=== PATIENT | male | born 1995 | race Caucasian/White ===

== ENCOUNTER 2016-10-24 06:12 | Emergency (ER) | payer BC ==
--- NOTE | 2016-10-24 08:05 | REP ---
Clinical: Chest pain . Comparison: 05/20/2014 . Technique: PA and lateral. Findings: The mediastinum and cardiac silhouette are normal. The lung johnson are clear and without acute consolidation, effusion, or pneumothorax. The skeletal structures are intact and normal. Impression: 1. No acute cardiopulmonary process. Signed by Ten Boyer MD 10/24/2016 07:57 A
[2016-10-24] MEDS ORDERED: KETOROLAC 30 MG/ML VIAL (J1885) As Ordered ONE (08:19)
[2016-10-24] MEDS ORDERED: diazePAM 5 MG TAB As Ordered ONE (08:19)
--- NOTE | 2016-10-24 08:33 | EDDOCDS ---
Physician Documentation [facility] Name: Rasta Gandara Age: 20 yrs Sex: Male : 1995 Arrival Date: 10/24/2016 Time: 06:12 Bed I4 / M4 Private MD: Disposition: 10/24/16 08:18 Discharged to Home/Self Care. Impression: Chest pain on breathing. - Condition is Stable. - Discharge Instructions: Chest Wall Pain, Muscle Cramps and Spasms. - Prescriptions for Naprosyn 500 mg Oral Tablet - take 1 tablet by ORAL route 2 times per day take with food; 30 tablet. Valium 5 mg Oral Tablet - take 1 tablet by ORAL route every 8 hours As needed MDD: 3 tabs; 15 tablet. - Medication Reconciliation form. - Follow up: Private Physician; When: Call to arrange an appointment; Reason: Wound/Symptom Recheck, Recheck today's complaints, Worsening of conditions, Continuance of care. - Problem is an ongoing problem. - Symptoms have improved. Historical: - Allergies: no known allergies; - Home Meds: 1. none - PMHx: none; - PSHx: none; - Social history: Smoking status: Patient/guardian denies using No barriers to communication noted, The patient speaks fluent Nepalese. - Family history: Not pertinent. - : The pt / caregiver states he / she is not on anticoagulants. Home medication list is obtained from the patient. - Exposure Risk Screening:: None identified. Vital Signs: 10/24 06:56 BP 121 / 73; Pulse 88; Resp 20; Temp 97.6; Pulse Ox 96% ; Weight 71.21 kg / 156.99 lbs dls (R); Height 5 ft. 9 in. (175.26 cm) (R); Pain 6/10; 08:28 BP 120 / 76; Pulse 76; Resp 18; Temp 98.3(O); Pulse Ox 95% on R/A; Pain 5/10; dem1 06:56 Body Mass Index 23.18 (71.21 kg, 175.26 cm) dls MDM: 07:41 ECG WITH READING ER PHYS+CARDIAG ordered. EDMS 07:42 Chest, 2 View (pa\E\lat) Ordered. EDMS 08:09 Financial registration complete. lg 08:18 ketorolac 60 mg IM once ordered. cc10 08:18 Diazepam 5 mg PO once ordered. cc10 Administered Medications: : Drug: ketorolac 60 mg [ketorolac 30 mg/mL (1 mL) injection solution (2 mL)] Route: IM; dls Site: left gluteus; 08:28 Follow up: Response: Pt left department before re-evaluation is appropriate dls 08: Drug: Diazepam 5 mg [diazepam 5 mg tablet (1 tabs)] Route: PO; dls : Follow up: Response: Confirmed pt not driving.; Pt left department before re-evaluation dls is appropriate Signatures: Dispatcher [employer] EDJenni Soto RN RN dls Lisa Arroyo Reg Reg lg [place], Colin, PA-C PACeci cc10 MTDD
--- NOTE | 2016-10-24 08:33 | EDDOCDS ---
Nurse's Notes [facility] Name: Rasta Gandara Age: 20 yrs Sex: Male : 1995 Arrival Date: 10/24/2016 Time: 06:12 Bed I4 / M4 Private MD: Diagnosis: Chest pain on breathing Presentation: 10/24 06:54 Presenting complaint: Patient states: Pt presents with c/o left sided chest pain onset dls one week ago much worse when he woke up this morning denies injury worse with movement denies cough. Aspirin was not taken prior to arrival. Adult Sepsis Screening: The patient does not have new or worsening altered mentation. Patient's respiratory rate is less than 22. Systolic blood pressure is greater than 100. Patient has a qSOFA score of 0- Negative Sepsis Screen. Suicide/Homicide risk assessment- the patient denies having any suicidal and/or homicidal ideations and does not present with any other emotional, behavioral or mental health complaints. 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 Transition of care: patient was not received from another setting of care. 06:54 Acuity: ENRIKE Level 4 dls 06:54 Method Of Arrival: Walkin/Carried/Asstd dls Triage Assessment: 06:56 General: Appears uncomfortable, well developed, well nourished, well groomed, Behavior dls is cooperative. Pain: Pain currently is 6 out of 10 on a pain scale. HIV screening NA for this visit Offered previously. Historical: - Allergies: no known allergies; - Home Meds: 1. none - PMHx: none; - PSHx: none; - Social history: Smoking status: Patient/guardian denies using No barriers to communication noted, The patient speaks fluent Serbian. - Family history: Not pertinent. - : The pt / caregiver states he / she is not on anticoagulants. Home medication list is obtained from the patient. - Exposure Risk Screening:: None identified. Screenin:29 Screening information is obtained from the patient. Fall risk: No risks identified. dls Assistance ADL's: requires no assistance with activities of daily living. Abuse/DV Screen: The patient / caregiver reports he/she is: not in a situation that causes fear, pain or injury. Nutritional screening: No deficits noted. Advance Directives: Currently, there is no health care proxy. There is no active DNR order. There is no living will. There is no Power of Model Technician. Advance directive information has not previously been placed in an [facility] medical record. home support is adequate. Assessment: 08:28 General: See triage note.. dls 08:31 Cardiovascular: Rhythm is sinus rhythm No ectopy. dls Vital Signs: 06:56 BP 121 / 73; Pulse 88; Resp 20; Temp 97.6; Pulse Ox 96% ; Weight 71.21 kg (R); Height 5 dls ft. 9 in. (175.26 cm) (R); Pain 6/10; 08:28 BP 120 / 76; Pulse 76; Resp 18; Temp 98.3(O); Pulse Ox 95% on R/A; Pain 5/10; dem1 06:56 Body Mass Index 23.18 (71.21 kg, 175.26 cm) dls Vitals: 06:56 Log In Time: October 24, 2016 at 06:13. dls ED Course: 06:13 Patient visited by Laila Manning, Reg. hs2 06:13 Patient moved to Waiting hs2 06:54 Patient moved to Triage 1 dls 06:56 Triage Initiated dls 07:00 Patient moved to I4 / M4 dls 07:59 Patient visited by Demario Kenny. dem1 07:59 EKG done. (by ED staff). Reviewed by Michael Almaraz PA-C. dem1 08:08 Michael Almaraz PA-C is PHCP. cc10 08:08 Daniel Delaney MD is Attending Physician. cc10 08:08 Patient visited by Michael Almaraz PA-C. cc10 08:08 Patient visited by Michael Almaraz PA-C. cc10 08:09 Chest, 2 View (pa\E\lat) Returned. EDMS 08:29 Patient visited by Demario Kenny. dem1 08:29 The patient / caregiver is instructed regarding the plan of care and ED course. dls Accompanied by Family Member, Patient has correct armband on for positive identification. Placed in gown. Bed in low position. Call light in reach. Cardiac monitoring not applicable on this patient. 08:29 No IV's were initiated during this patient's visit. No procedures done that require dls assistance. Administered Medications: 08:27 Drug: ketorolac 60 mg [ketorolac 30 mg/mL (1 mL) injection solution (2 mL)] Route: IM; dls Site: left gluteus; 08:28 Follow up: Response: Pt left department before re-evaluation is appropriate dls 08:27 Drug: Diazepam 5 mg [diazepam 5 mg tablet (1 tabs)] Route: PO; dls 08:27 Follow up: Response: Confirmed pt not driving.; Pt left department before re-evaluation dls is appropriate Order Results: Radiology Order: Chest, 2 View (pa\E\lat) Test: Chest, 2 View (pa\E\lat) REASON FOR EXAMINATION: Chest Pain; Clinical: Chest pain .; ; Comparison: 05/20/2014 .; ; Technique: PA and lateral.; ; Findings:; The mediastinum and cardiac silhouette are normal. The lung johnson are clear and; without acute consolidation, effusion, or pneumothorax. The skeletal structures; are intact and normal.; ; Impression:; 1. No acute cardiopulmonary process.; ; ; Signed by; Ten Boyer MD 10/24/2016 07:57 A; Outcome: 08:18 Discharge ordered by Provider. cc10 08:30 Discharge Assessment: Patient awake, alert and oriented x 3. No cognitive and/or dls functional deficits noted. Patient verbalized understanding of disposition instructions. patient administered narcotics - yes. Pt provided with safe discharge. The following High Risk Discharge criteria are identified: None. Discharged to home ambulatory, with parent. Condition: stable. Discharge instructions given to patient, Instructed on discharge instructions, follow up and referral plans. medication usage, Demonstrated understanding of instructions, medications, Pt was receptive of discharge instructions/ teaching. Prescriptions given X 2, Work note provided to patient. No special radiology studies were completed. Property sent home with patient. 08:31 Patient left the ED. dls Signatures: Dispatcher [employer] EDJenni Soto RN RN dls Mack, Demeishia dem1 Michael Almaraz PA-C PA-C cc10 Laila Manning, Reg Reg hs2 Corrections: (The following items were deleted from the chart) 08:29 08:28 BP 120 / 76; Pulse 76bpm; Resp 18bpm; Pulse Ox 95% RA; Temp 98.3F Oral; dem1 dem1 MTDD
--- NOTE | 2016-10-24 12:19 | ECGEPIP ---
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 RBBB EARLY REPOLARIZATION Electronically Signed On 10-24-2016 12:19:05 EST by Jake Nye
--- NOTE | 2016-10-26 09:33 | EDDOCDS ---
Physician Documentation [facility] Name: Rasta Gandara Age: 20 yrs Sex: Male : 1995 Arrival Date: 10/24/2016 Time: 06:12 Bed I4 / M4 Private MD: Disposition: 10/24/16 08:18 Discharged to Home/Self Care. Impression: Chest pain on breathing. - Condition is Stable. - Discharge Instructions: Chest Wall Pain, Muscle Cramps and Spasms. - Prescriptions for Naprosyn 500 mg Oral Tablet - take 1 tablet by ORAL route 2 times per day take with food; 30 tablet. Valium 5 mg Oral Tablet - take 1 tablet by ORAL route every 8 hours As needed MDD: 3 tabs; 15 tablet. - Medication Reconciliation form. - Follow up: Private Physician; When: Call to arrange an appointment; Reason: Wound/Symptom Recheck, Recheck today's complaints, Worsening of conditions, Continuance of care. - Problem is an ongoing problem. - Symptoms have improved. Historical: - Allergies: no known allergies; - Home Meds: 1. none - PMHx: none; - PSHx: none; - Social history: Smoking status: Patient/guardian denies using No barriers to communication noted, The patient speaks fluent Peruvian. - Family history: Not pertinent. - : The pt / caregiver states he / she is not on anticoagulants. Home medication list is obtained from the patient. - Exposure Risk Screening:: None identified. Vital Signs: 10/24 06:56 BP 121 / 73; Pulse 88; Resp 20; Temp 97.6; Pulse Ox 96% ; Weight 71.21 kg / 156.99 lbs dls (R); Height 5 ft. 9 in. (175.26 cm) (R); Pain 6/10; 08:28 BP 120 / 76; Pulse 76; Resp 18; Temp 98.3(O); Pulse Ox 95% on R/A; Pain 5/10; dem1 06:56 Body Mass Index 23.18 (71.21 kg, 175.26 cm) dls MDM: 07:41 ECG WITH READING ER PHYS+CARDIAG ordered. EDMS 07:42 Chest, 2 View (pa\E\lat) Ordered. EDMS 08:09 Financial registration complete. lg 08:18 ketorolac 60 mg IM once ordered. cc10 08:18 Diazepam 5 mg PO once ordered. cc10 09:42 [facility] Payment Agreement was scanned into [employer] and attached to record. lg 17:13 T-Sheet-- Draft Copy was scanned into [employer] and attached to record. klr Administered Medications: 08:27 Drug: ketorolac 60 mg [ketorolac 30 mg/mL (1 mL) injection solution (2 mL)] Route: IM; dls Site: left gluteus; 08:28 Follow up: Response: Pt left department before re-evaluation is appropriate dls 08: Drug: Diazepam 5 mg [diazepam 5 mg tablet (1 tabs)] Route: PO; dls 08: Follow up: Response: Confirmed pt not driving.; Pt left department before re-evaluation dls is appropriate Signatures: Dispatcher [employer] EDJenni Soto RN RN dls Lisa Arroyo, José Kumar lg Michael Almaraz, PA-C PA-C cc10 Flavia Schultz klr The chart was reviewed and I authenticate all verbal orders and agree with the evaluation and treatment provided.Attachments: 09:42 [facility] Payment Agreement lg 17:13 T-Sheet-- Draft Copy klr Chart Complete MTDD
--- NOTE | 2016-10-26 09:33 | EDDOCDS ---
Nurse's Notes [facility] Name: Daisy Nichols Age: 20 yrs Sex: Male : 1995 Arrival Date: 10/24/2016 Time: 06:12 Bed I4 / M4 Private MD: Diagnosis: Chest pain on breathing Presentation: 10/24 06:54 Presenting complaint: Patient states: Pt presents with c/o left sided chest pain onset dls one week ago much worse when he woke up this morning denies injury worse with movement denies cough. Aspirin was not taken prior to arrival. Adult Sepsis Screening: The patient does not have new or worsening altered mentation. Patient's respiratory rate is less than 22. Systolic blood pressure is greater than 100. Patient has a qSOFA score of 0- Negative Sepsis Screen. Suicide/Homicide risk assessment- the patient denies having any suicidal and/or homicidal ideations and does not present with any other emotional, behavioral or mental health complaints. Status: Patient is not a clinical services specialist or dependent. Transition of care: patient was not received from another setting of care. 06:54 Acuity: ENRIKE Level 4 dls 06:54 Method Of Arrival: Walkin/Carried/Asstd dls Triage Assessment: 06:56 General: Appears uncomfortable, well developed, well nourished, well groomed, Behavior dls is cooperative. Pain: Pain currently is 6 out of 10 on a pain scale. HIV screening NA for this visit Offered previously. Historical: - Allergies: no known allergies; - Home Meds: 1. none - PMHx: none; - PSHx: none; - Social history: Smoking status: Patient/guardian denies using No barriers to communication noted, The patient speaks fluent Burkinan. - Family history: Not pertinent. - : The pt / caregiver states he / she is not on anticoagulants. Home medication list is obtained from the patient. - Exposure Risk Screening:: None identified. Screenin:29 Screening information is obtained from the patient. Fall risk: No risks identified. dls Assistance ADL's: requires no assistance with activities of daily living. Abuse/DV Screen: The patient / caregiver reports he/she is: not in a situation that causes fear, pain or injury. Nutritional screening: No deficits noted. Advance Directives: Currently, there is no health care proxy. There is no active DNR order. There is no living will. There is no Power of [employer]estock [employer]. Advance directive information has not previously been placed in an [facility] medical record. home support is adequate. Assessment: 08:28 General: See triage note.. dls 08:31 Cardiovascular: Rhythm is sinus rhythm No ectopy. dls Vital Signs: 06:56 BP 121 / 73; Pulse 88; Resp 20; Temp 97.6; Pulse Ox 96% ; Weight 71.21 kg (R); Height 5 dls ft. 9 in. (175.26 cm) (R); Pain 6/10; 08:28 BP 120 / 76; Pulse 76; Resp 18; Temp 98.3(O); Pulse Ox 95% on R/A; Pain 5/10; dem1 06:56 Body Mass Index 23.18 (71.21 kg, 175.26 cm) dls Vitals: 06:56 Log In Time: October 24, 2016 at 06:13. dls ED Course: 06:13 Patient visited by Laila Manning, Reg. hs2 06:13 Patient moved to Waiting hs2 06:54 Patient moved to Triage 1 dls 06:56 Triage Initiated dls 07:00 Patient moved to I4 / M4 dls 07:59 Patient visited by Demario Kenny. dem1 07:59 EKG done. (by ED staff). Reviewed by Michael Almaraz PA-C. dem1 08:08 Michael Almaraz PA-C is PHCP. cc10 08:08 Daniel Delaney MD is Attending Physician. cc10 08:08 Patient visited by Michael Almaraz PA-C. cc10 08:08 Patient visited by Michael Almaraz PA-C. cc10 08:09 Chest, 2 View (pa\E\lat) Returned. EDMS 08:29 Patient visited by Demario Kenny. dem1 08:29 The patient / caregiver is instructed regarding the plan of care and ED course. dls Accompanied by Family Member, Patient has correct armband on for positive identification. Placed in gown. Bed in low position. Call light in reach. Cardiac monitoring not applicable on this patient. 08:29 No IV's were initiated during this patient's visit. No procedures done that require dls assistance. 09:41 Patient name changed from Daisy\S\T\S\Juliocesar\S\ to Daisy\S\Toro\S\Juliocesar. EDMS 09:42 [facility] Payment Agreement was scanned into [employer] and attached to record. lg 12:25 EKG-ADULT Returned. EDMS 17:13 T-Sheet-- Draft Copy was scanned into [employer] and attached to record. klr Administered Medications: 08:27 Drug: ketorolac 60 mg [ketorolac 30 mg/mL (1 mL) injection solution (2 mL)] Route: IM; dls Site: left gluteus; 08:28 Follow up: Response: Pt left department before re-evaluation is appropriate dls 08:27 Drug: Diazepam 5 mg [diazepam 5 mg tablet (1 tabs)] Route: PO; dls 08:27 Follow up: Response: Confirmed pt not driving.; Pt left department before re-evaluation dls is appropriate Order Results: Radiology Order: EKG-ADULT Test: EKG-ADULT REASON FOR EXAMINATION: Chest Pain; Stationary ECG Study; [facility] - ED; ; Test Date: 2016-10-24; Pat Name: DAISY NICHOLS Department:; Room: -; 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 RBBB; EARLY REPOLARIZATION; Electronically Signed On 10-24-2016 12:19:05 EST by Jake Nye; Radiology Order: Chest, 2 View (pa\E\lat) Test: Chest, 2 View (pa\E\lat) REASON FOR EXAMINATION: Chest Pain; Clinical: Chest pain .; ; Comparison: 05/20/2014 .; ; Technique: PA and lateral.; ; Findings:; The mediastinum and cardiac silhouette are normal. The lung johnson are clear and; without acute consolidation, effusion, or pneumothorax. The skeletal structures; are intact and normal.; ; Impression:; 1. No acute cardiopulmonary process.; ; ; Signed by; Ten Boyer MD 10/24/2016 07:57 A; Outcome: 08:18 Discharge ordered by Provider. cc10 08:30 Discharge Assessment: Patient awake, alert and oriented x 3. No cognitive and/or dls functional deficits noted. Patient verbalized understanding of disposition instructions. patient administered narcotics - yes. Pt provided with safe discharge. The following High Risk Discharge criteria are identified: None. Discharged to home ambulatory, with parent. Condition: stable. Discharge instructions given to patient, Instructed on discharge instructions, follow up and referral plans. medication usage, Demonstrated understanding of instructions, medications, Pt was receptive of discharge instructions/ teaching. Prescriptions given X 2, Work note provided to patient. No special radiology studies were completed. Property sent home with patient. 08:31 Patient left the ED. dls Signatures: Dispatcher [employer] EDMS Jenni Hernandez RN RN dls Lisa Arroyo, Reg Reg lg Efraín, Abrilia dem1 Michael Almaraz, PA-C PA-C cc10 Laila Manning, Reg Reg hs2 Flavia Schultz Corrections: (The following items were deleted from the chart) 08:29 08:28 BP 120 / 76; Pulse 76bpm; Resp 18bpm; Pulse Ox 95% RA; Temp 98.3F Oral; dem1 dem1 Chart Complete MTDD
--- NOTE | 2016-10-26 09:33 | EDDOCDS ---
Physician Documentation [facility] Name: Rasta Gandara Age: 20 yrs Sex: Male : 1995 Arrival Date: 10/24/2016 Time: 06:12 Bed I4 / M4 Private MD: Disposition: 10/24/16 08:18 Discharged to Home/Self Care. Impression: Chest pain on breathing. - Condition is Stable. - Discharge Instructions: Chest Wall Pain, Muscle Cramps and Spasms. - Prescriptions for Naprosyn 500 mg Oral Tablet - take 1 tablet by ORAL route 2 times per day take with food; 30 tablet. Valium 5 mg Oral Tablet - take 1 tablet by ORAL route every 8 hours As needed MDD: 3 tabs; 15 tablet. - Medication Reconciliation form. - Follow up: Private Physician; When: Call to arrange an appointment; Reason: Wound/Symptom Recheck, Recheck today's complaints, Worsening of conditions, Continuance of care. - Problem is an ongoing problem. - Symptoms have improved. Historical: - Allergies: no known allergies; - Home Meds: 1. none - PMHx: none; - PSHx: none; - Social history: Smoking status: Patient/guardian denies using No barriers to communication noted, The patient speaks fluent Ethiopian. - Family history: Not pertinent. - : The pt / caregiver states he / she is not on anticoagulants. Home medication list is obtained from the patient. - Exposure Risk Screening:: None identified. Vital Signs: 10/24 06:56 BP 121 / 73; Pulse 88; Resp 20; Temp 97.6; Pulse Ox 96% ; Weight 71.21 kg / 156.99 lbs dls (R); Height 5 ft. 9 in. (175.26 cm) (R); Pain 6/10; 08:28 BP 120 / 76; Pulse 76; Resp 18; Temp 98.3(O); Pulse Ox 95% on R/A; Pain 5/10; dem1 06:56 Body Mass Index 23.18 (71.21 kg, 175.26 cm) dls MDM: 07:41 ECG WITH READING ER PHYS+CARDIAG ordered. EDMS 07:42 Chest, 2 View (pa\E\lat) Ordered. EDMS 08:09 Financial registration complete. lg 08:18 ketorolac 60 mg IM once ordered. cc10 08:18 Diazepam 5 mg PO once ordered. cc10 09:42 [facility] Payment Agreement was scanned into [employer] and attached to record. lg 17:13 T-Sheet-- Draft Copy was scanned into [employer] and attached to record. klr Administered Medications: 08:27 Drug: ketorolac 60 mg [ketorolac 30 mg/mL (1 mL) injection solution (2 mL)] Route: IM; dls Site: left gluteus; 08:28 Follow up: Response: Pt left department before re-evaluation is appropriate dls 08: Drug: Diazepam 5 mg [diazepam 5 mg tablet (1 tabs)] Route: PO; dls 08: Follow up: Response: Confirmed pt not driving.; Pt left department before re-evaluation dls is appropriate Signatures: Dispatcher [employer] EDJenni Soto RN RN dls Lisa Arroyo, José Kumar lg Michael Almaraz, PA-C PA-C cc10 Flavia Schultz klr The chart was reviewed and I authenticate all verbal orders and agree with the evaluation and treatment provided.Attachments: 09:42 [facility] Payment Agreement lg 17:13 T-Sheet-- Draft Copy klr Chart Complete MTDD
== END 2016-10-24 08:31 | disposition home or self-care (01) ==
LOC: M ED 06:12
DX: R07.89 Other chest pain (principal)
CPT/HCPCS: 71020; 93005; 96372; 99284; J1885

== ENCOUNTER → 2020-09-05 | Outpatient (REF) | payer BC, SELFPAY | LOC: EDSTATUS 10:10 → M LABSMTC 10:35 | PROVIDERS: ATTEND Pediatrics | DX: Z20.822 Contact with and (suspected) exposure to COVID-19 (principal) ==

== ENCOUNTER 2021-06-06 10:17 | Emergency (ER) | payer SELFPAY ==
[~2021-06-06] VITALS: Ht 175.3 cm; Wt 85.4 kg
[2021-06-06] MEDS ORDERED: GOOD200C PO (10:57)
[2021-06-06] MEDS ORDERED: ONDANSETRON 4 MG ORAL DISINTEGRATING TAB PO ONE (11:20)
--- NOTE | 2021-06-06 11:38 | REP ---
INDICATION: worsening headache for 2 months. COMPARISON: None. TECHNIQUE: Helical scanning is acquired. 5 mm axial images were reformatted. Coronal MPR images were generated. FINDINGS: Bone window settings demonstrate an intact bony calvarium. There is no evidence of skull fracture or incidental bony calvarial lesion. The visualized paranasal sinuses appear clear. No intraorbital abnormality is seen. On soft tissue window setting images; the lateral, third, and fourth ventricles are normal in size and position. Davila-white differentiation pattern is normal above and below the tentorium. There are is no evidence of intracranial hemorrhage. No mass, edema, infarction, or midline shift is seen. No extra-axial fluid collection is appreciated. IMPRESSION: Negative noncontrast head CT. <Electronically signed by Portillo Burns > 06/06/21 [id number]
[2021-06-06 12:10] VITALS: BP 133/69
== END 2021-06-06 12:12 | disposition home or self-care (01) ==
LOC: M ED 10:17
DX: G44.209 Tension-type headache, unspecified, not intractable (principal)
CPT/HCPCS: 70450; 99283; Q0162

== ENCOUNTER → 2021-09-05 | Outpatient (CLI) | payer SELFPAY ==
[~2021-09-05] MED LIST: GOOD200C PO
== END ==
LOC: M LABSMTC 13:27
PROVIDERS: ATTEND Pediatrics
DX: Z20.822 Contact with and (suspected) exposure to COVID-19 (principal)
CPT/HCPCS: C9803; U0003